=== PATIENT | female | born 1975 | race Caucasian/White ===

== ENCOUNTER 2020-05-14 17:31 | Inpatient (IN) ==
[2020-05-14] MEDS ORDERED: ONDANSETRON INJ 2 MG/ML 2 ML VIAL IV STA (17:47)
--- NOTE | 2020-05-14 17:58 | Emergency Department Note ---
Impression & Plan Acute upper gastrointestinal bleeding, Anemia, Hernia, hiatal, Nausea & vomiting ED Provider Note NAME: JOSE MANUEL TRAN AGE: 45 SEX: F : 1975 ARRIVES VIA: Walk-In INFORMANT: Patient, ED PROVIDER(S): Vijay Stark DO CHIEF COMPLAINT: Abdominal pain HPI: The patient is a 45-year-old female who presented to the emergency department with epigastric abdominal pain. The patient states she began having abdominal pain approximately 3:00 this morning. She states that the symptoms have been ongoing and since that time but they wax and wane. She started noticing epigastric abdominal pain as well as nausea vomiting. She has had multiple episodes of dark bowel movements as well as dark vomiting but she did take Pepto-Bismol. She states the pain is moderate to severe at this time. She had similar symptoms in the past. She has had upper endoscopy multiple times with no definite cause to her symptoms. She does have anemia and the feeling is that she does have some GI bleeding but no definite sources have been found despite having multiple work-ups. She denies having any fever or cough. She does state that she noticed some swelling in her hands and feet. She is not had any recent falls. She is not seen a provider for the symptoms today. ROS: See above HPI for pertinent positives & negatives. A total of 10 systems reviewed and were otherwise negative. PAST MEDICAL HISTORY: See Below PAST SURGICAL HISTORY: See Below FAMILY HISTORY: See Below SOCIAL HISTORY: See Below HOME MEDICATIONS: See Below ALLERGIES: See Below VITALS: See Below PHYSICAL EXAMINATION: GENERAL: The patient is awake and alert. She is very anxious appearing and appears to be uncomfortable. EYES: The conjunctivae are clear. The pupils are round and reactive. EARS, NOSE, MOUTH AND THROAT: The nose is without any evidence of any deformity. NECK: The neck is nontender and supple. RESPIRATORY: Normal respiratory effort is noted there is no evidence of wheezing rhonchi or rales CARDIOVASCULAR: Tachycardic rate with regular rhythm was noted. There is no definite murmur. GASTROINTESTINAL: Abdomen was soft mildly distended. There is epigastric tenderness to palpation but no guarding rigidity. Rectal exam revealed black stool which was heme positive. MUSCULOSKELETAL/EXTREMITIES: There is no evidence of gross deformity full range of motion is noted in the hips and shoulders. SKIN: There is no obvious evidence of any rash. No significant pedal edema was noted. NEUROLOGIC: Patient is awake alert and oriented x3 strength is symmetric patellar reflexes are 2+ bilaterally MEDICAL DECISION MAKING: The patient is a 45-year-old female who presented to the emergency department for an evaluation of nausea vomiting. The patient states she began having nausea vomiting early this morning. She does have a history of similar episodes in the past. She is had multiple upper endoscopies as well as lower endoscopies to evaluate anemia. She has known GI bleeding but never a source could be identified. The patient states she started having dark emesis as well as dark bowel movements but also took Pepto-Bismol prior to the onset of the dark emesis. The patient was found to have anemia. Her recent hemoglobin in the [employer] system was 13. This would signify a very significant drop in the patient's hemoglobin. The patient was treated with IV fluids. She was also given Protonix and Pepcid IV. She was also given IV Rocephin. She was given an tiemetics and on subsequent reevaluation was feeling much better. I discussed the patient's laboratory and radiographic studies with her. Because of her findings I will also discussed this case with the on-call [facility]. She will likely require further inpatient management. Triage Nursing notes reviewed. Prior medical records reviewed Vital Signs: reviewed and remarkable for tachycardia Differential diagnosis: Gastroenteritis, food borne illness, infections, appendicitis, diverticulitis, inflammatory bowel disease, obstruction, GI bleed, biliary pathology, volvulus, as well as other pathologies. ER treatment provided: See below Diagnostics interpreted by me: ECG: none Cardiac Monitoring: An order was placed for continuous cardiac monitoring. The monitor shows a rate of 115 bpm with sinus tachycardia rhythm. Laboratory studies: As stated above and show below. Imaging studies: See below Consultation(s): 1930: I discussed this case with Dr. Karimi who is on-call for the [facility] group. He will evaluate the patient in the emergency department for further management and disposition. 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 Current Living Situation: Family Other Information That Helps Us Care for You: No Feels Safe at Home: Yes Safety Concerns: Feels Safe At This Time Assistive Devices: Glasses Allergies Allergies Allergy/AdvReac Type Severity Reaction Status Date / Time Bactrim Allergy Intermediate sob, chest Verified 05/30/16 22:22 tightness nitrofurantoin Allergy Intermediate vomiting, Verified 05/14/20 20:28 headache Sulfa (Sulfonamide Allergy Intermediate RASH Unverified 05/14/20 20:28 Antibiotics) sulfamethoxazole Allergy Intermediate sob, chest Verified 05/14/20 20:27 tightness trimethoprim Allergy Intermediate sob, chest Verified 05/14/20 20:27 tightness Iodinated Contrast Media Allergy Unknown unk Verified 05/14/20 20:28 iodine Allergy Unknown CHEST Unverified 05/14/20 20:29 TIGHTNESS Home Meds Home Medications Medication Instructions Recorded Confirmed albuterol sulfate 2 puff INHALATION Q4H PRN 05/14/20 05/14/20 ascorbic acid (vitamin C) 0 mg PO DAILY 05/14/20 05/14/20 fluticasone propion-salmeterol 1 inh INHALATION BID 05/14/20 05/14/20 omeprazole 20 mg PO BID PRN 05/14/20 05/14/20 Results & Data (ED) Vital Signs Vital Signs - 24 hr 05/14/20 17:38 05/14/20 18:18 05/14/20 18:23 Temperature 36.9 C Temperature Source Oral Pulse Rate 132 H 115 H 114 H Pulse Rate [Right Finger] Pulse Rate from SpO2 Sensor 117 H 114 H Pulse Rhythm Respiratory Rate 19 17 24 Respiratory Effort / Characteristics Non-Labored Spontaneous Respiratory Depth Normal Blood Pressure 141/90 H 133/77 128/80 Blood Pressure [Right Arm] Blood Pressure Mean 107 84 103 Blood Pressure Mean [Right Arm] Blood Pressure Position Sitting Blood Pressure Position [Right Arm] Pulse Oximetry 98 97 97 Oxygen Delivery Method Room Air Sepsis Recent Fever Within 48 Hours No Sepsis New/Unexplained Change in Mental Status N/A Sepsis Action Taken by Nursing No Action Required 05/14/20 18:24 05/14/20 18:34 05/14/20 18:40 Temperature Temperature Source Pulse Rate 117 H 105 H Pulse Rate [Right Finger] Pulse Rate from SpO2 Sensor 116 H 116 H 105 H Pulse Rhythm Respiratory Rate 20 20 Respiratory Effort / Characteristics Respiratory Depth Blood Pressure 115/68 Blood Pressure [Right Arm] Blood Pressure Mean 92 Blood Pressure Mean [Right Arm] Blood Pressure Position Blood Pressure Position [Right Arm] Pulse Oximetry 98 98 98 Oxygen Delivery Method Sepsis Recent Fever Within 48 Hours Sepsis New/Unexplained Change in Mental Status Sepsis Action Taken by Nursing 05/14/20 18:48 05/14/20 18:50 05/14/20 18:52 Temperature Temperature Source Pulse Rate 115 H 104 H 128 H Pulse Rate [Right Finger] Pulse Rate from SpO2 Sensor 114 H 104 H Pulse Rhythm Regular Respiratory Rate 31 H 22 22 Respiratory Effort / Characteristics Respiratory Depth Blood Pressure 113/94 Blood Pressure [Right Arm] Blood Pressure Mean 96 Blood Pressure Mean [Right Arm] Blood Pressure Position Blood Pressure Position [Right Arm] Pulse Oximetry 100 98 98 Oxygen Delivery Method Sepsis Recent Fever Within 48 Hours Sepsis New/Unexplained Change in Mental Status Sepsis Action Taken by Nursing 05/14/20 19:00 05/14/20 19:10 05/14/20 19:20 Temperature Temperature Source Pulse Rate 107 H 101 H 107 H Pulse Rate [Right Finger] Pulse Rate from SpO2 Sensor 106 H 104 H 107 H Pulse Rhythm Respiratory Rate 21 18 21 Respiratory Effort / Characteristics Respiratory Depth Blood Pressure 112/69 Blood Pressure [Right Arm] Blood Pressure Mean 72 Blood Pressure Mean [Right Arm] Blood Pressure Position Blood Pressure Position [Right Arm] Pulse Oximetry 97 98 98 Oxygen Delivery Method Sepsis Recent Fever Within 48 Hours Sepsis New/Unexplained Change in Mental Status Sepsis Action Taken by Nursing 05/14/20 19:30 05/14/20 19:40 05/14/20 19:50 Temperature Temperature Source Pulse Rate 109 H 102 H 98 H Pulse Rate [Right Finger] Pulse Rate from SpO2 Sensor 111 H 102 H 99 H Pulse Rhythm Respiratory Rate 24 19 15 Respiratory Effort / Characteristics Respiratory Depth Blood Pressure Blood Pressure [Right Arm] Blood Pressure Mean Blood Pressure Mean [Right Arm] Blood Pressure Position Blood Pressure Position [Right Arm] Pulse Oximetry 98 99 99 Oxygen Delivery Method Sepsis Recent Fever Within 48 Hours Sepsis New/Unexplained Change in Mental Status Sepsis Action Taken by Nursing 05/14/20 20:00 05/14/20 20:10 05/14/20 20:20 Temperature Temperature Source Pulse Rate 98 H 99 H 96 H Pulse Rate [Right Finger] Pulse Rate from SpO2 Sensor 97 H 100 H 97 H Pulse Rhythm Respiratory Rate 19 24 23 Respiratory Effort / Characteristics Respiratory Depth Blood Pressure 135/83 Blood Pressure [Right Arm] Blood Pressure Mean 104 Blood Pressure Mean [Right Arm] Blood Pressure Position Blood Pressure Position [Right Arm] Pulse Oximetry 99 99 99 Oxygen Delivery Method Sepsis Recent Fever Within 48 Hours Sepsis New/Unexplained Change in Mental Status Sepsis Action Taken by Nursing 05/14/20 20:47 Temperature Temperature Source Pulse Rate Pulse Rate [Right Finger] 101 H Pulse Rate from SpO2 Sensor Pulse Rhythm Respiratory Rate 20 Respiratory Effort / Characteristics Respiratory Depth Blood Pressure Blood Pressure [Right Arm] 127/79 Blood Pressure Mean Blood Pressure Mean [Right Arm] 95 Blood Pressure Position Blood Pressure Position [Right Arm] Sitting Pulse Oximetry 99 Oxygen Delivery Method Room Air Sepsis Recent Fever Within 48 Hours Sepsis New/Unexplained Change in Mental Status Sepsis Action Taken by [facility] Medications Current Medication List: was personally reviewed by me Laboratory Data Attestation: I reviewed the patient's lab results. Result diagrams: 05/14/20 18:05 05/14/20 18:05 Lab Results 05/14/20 05/14/20 05/14/20 Range/Units 18:05 18:05 18:05 WBC 16.13 H (4.8-10.8) K/uL RBC 3.67 L (4.2-5.4) M/uL Hgb 10.8 L (12.0-16.0) g/dL Hct 33.1 L (37-47) % MCV 90.2 (80-100) fL MCH 29.4 (25-34) pg MCHC 32.6 (32-36) g/dL RDW Std Deviation 49.0 H (36.4-46.3) fL RDW Coeff of Hasmukh 15.0 H (11.5-14.5) % Plt Count 410 H (130-400) K/uL MPV 10.5 H (7.4-10.4) fL Immature Gran % (Auto) 0.2 % Neut % (Auto) 84.4 % Lymph % (Auto) 9.9 % S[place] % (Auto) 4.8 % Eos % (Auto) 0.6 % Baso % (Auto) 0.1 % Neut # (Auto) 13.61 H (1.4-6.5) K/uL Lymph # (Auto) 1.59 (1.2-3.4) K/uL [place]y # (Auto) 0.78 H (0.11-0.59) K/uL Eos # (Auto) 0.09 (0-0.5) K/uL Baso # (Auto) 0.02 (0-0.2) K/uL Immature Gran # (Auto) 0.04 H (0.00-0.02) K/uL PT 11.5 (9.0-12.0) Seconds INR 1.1 (0.9-1.1) APTT 24.0 (21.0-31.0) Seconds PTT Ratio 0.9 Sodium 136 (136-145) mmol/L Potassium 4.4 (3.5-5.1) mmol/L Chloride 106 (98-107) mmol/L Carbon Dioxide 24 (21-32) mmol/L Anion Gap 6.0 (3-11) BUN 41 H (7-18) mg/dl Creatinine 0.69 (0.6-1.2) mg/dl Est Cr Clr Drug Dosing Not Reportable Est GFR ( Amer) 121.0 Est GFR (Non-Af Amer) 104.4 BUN/Creatinine Ratio 60.0 H (10-20) Glucose 111 H (70-99) mg/dl Calcium 9.1 (8.5-10.1) mg/dl Total Bilirubin 0.4 (0.2-1) mg/dl AST 9 L (15-37) U/L ALT 11 L (12-78) U/L Alkaline Phosphatase 65 (45-117) U/L Total Protein 6.8 (6.4-8.2) gm/dl Albumin 3.3 L (3.4-5.0) gm/dl Globulin 3.5 (2.5-4.0) gm/dl Albumin/Globulin Ratio 1.0 (0.9-2) Lipase 80 (73-393) U/L HCG, Qual (Negative) Urine Color Urine Appearance (Clear) Urine pH (4.5-7.5) Ur Specific [place] (1.000-1.030) Urine Protein (Negative) Urine Glucose (UA) (Negative) Urine Ketones (Negative) Urine Blood (Negative) Urine Nitrite (Negative) Urine Bilirubin (Negative) Urine Urobilinogen (Negative) Ur Leukocyte Esterase (Negative) Urine WBC (Auto) (0-5) /hpf Urine RBC (Auto) (0-4) /hpf U Hyaline Cast (Auto) (0-5) /lpf U Epithel Cells (Auto) (0-5) /lpf Urine Bacteria (Auto) (Negative) Blood Type Antibody Screen 05/14/20 05/14/20 05/14/20 Range/Units 18:05 18:10 19:32 WBC (4.8-10.8) K/uL RBC (4.2-5.4) M/uL Hgb (12.0-16.0) g/dL Hct (37-47) % MCV (80-100) fL MCH (25-34) pg MCHC (32-36) g/dL RDW Std Deviation (36.4-46.3) fL RDW Coeff of Hasmukh (11.5-14.5) % Plt Count (130-400) K/uL MPV (7.4-10.4) fL Immature Gran % (Auto) % Neut % (Auto) % Lymph % (Auto) % Sibley % (Auto) % Eos % (Auto) % Baso % (Auto) % Neut # (Auto) (1.4-6.5) K/uL Lymph # (Auto) (1.2-3.4) K/uL S[place]y # (Auto) (0.11-0.59) K/uL Eos # (Auto) (0-0.5) K/uL Baso # (Auto) (0-0.2) K/uL Immature Gran # (Auto) (0.00-0.02) K/uL PT (9.0-12.0) Seconds INR (0.9-1.1) APTT (21.0-31.0) Seconds PTT Ratio Sodium (136-145) mmol/L Potassium (3.5-5.1) mmol/L Chloride (98-107) mmol/L Carbon Dioxide (21-32) mmol/L Anion Gap (3-11) BUN (7-18) mg/dl Creatinine (0.6-1.2) mg/dl Est Cr Clr Drug Dosing Est GFR ( Amer) Est GFR (Non-Af Amer) BUN/Creatinine Ratio (10-20) Glucose (70-99) mg/dl Calcium (8.5-10.1) mg/dl Total Bilirubin (0.2-1) mg/dl AST (15-37) U/L ALT (12-78) U/L Alkaline Phosphatase (45-117) U/L Total Protein (6.4-8.2) gm/dl Albumin (3.4-5.0) gm/dl Globulin (2.5-4.0) gm/dl Albumin/Globulin Ratio (0.9-2) Lipase (73-393) U/L HCG, Qual Negative (Negative) Urine Color Yellow Urine Appearance Clear (Clear) Urine pH 5.5 (4.5-7.5) Ur Specific [place] 1.023 (1.000-1.030) Urine Protein Negative (Negative) Urine Glucose (UA) Negative (Negative) Urine Ketones 2+ H (Negative) Urine Blood Trace H (Negative) Urine Nitrite Negative (Negative) Urine Bilirubin Negative (Negative) Urine Urobilinogen Negative (Negative) Ur Leukocyte Esterase Negative (Negative) Urine WBC (Auto) 1-5 (0-5) /hpf Urine RBC (Auto) 0-4 (0-4) /hpf U Hyaline Cast (Auto) 1-5 (0-5) /lpf U Epithel Cells (Auto) >30 H (0-5) /lpf Urine Bacteria (Auto) Negative (Negative) Blood Type A Positive Antibody Screen NEGATIVE Administered Medications Discontinued Medications Sodium Chloride (Nss 1000ml) 1,000 mls @ 999 mls/hr IV .Q1H1M MARTIN Stop: 05/14/20 19:00 Last Infusion: 05/14/20 19:29 Dose: 0 mls/hr Documented by: [id number] Admin: 05/14/20 18:21 Dose: 999 mls/hr Documented by: [id number] Pantoprazole Sodium 40 mg/ (Syringe) 10 mls @ 5 mls/min IV NOW ONE Stop: 05/14/20 19:20 Last Admin: 05/14/20 19:44 Dose: 5 mls/min Documented by: [id number] Famotidine (Pepcid 20mg Iv Push) 20 mg in 5 mls @ 2.5 mls/min IV NOW STA Stop: 05/14/20 19:20 Last Admin: 05/14/20 19:28 Dose: 2.5 mls/min Documented by: [id number] Ceftriaxone Sodium (Rocephin) 1,000 mg in 50 mls @ 100 mls/hr IV NOW STA Stop: 05/14/20 19:48 Last Infusion: 05/14/20 20:00 Dose: 0 mls/hr Documented by: [id number] Admin: 05/14/20 19:29 Dose: 100 mls/hr Documented by: [id number] Sodium Chloride (Nss 1000ml) 1,000 mls @ 999 mls/hr IV .Q1H1M ONE Stop: 05/14/20 20:19 Last Infusion: 05/14/20 20:34 Dose: 0 mls/hr Documented by: [id number] Admin: 05/14/20 19:28 Dose: 999 mls/hr Documented by: [id number] Ondansetron HCl (Ondansetron Inj 2 Mg/Ml 2 Ml Vial) 4 mg IV NOW STA Stop: 05/14/20 17:48 Last Admin: 05/14/20 18:20 Dose: 4 mg Documented by: [id number] Imaging Data Radiologist's Impression: Patient: JOSE MANUEL TRAN Admit Date: 05/14/20 MR#: [id number] Address1: [address] [place] [address] Acct ID:[id number] Address2: Date: 1975 [facility] Zip: [place] [address] Age: 45 Location: ED Sex: F Room/Bed: Att Phy: Diagnosis: VOMITING BLACK,ABDOMINAL PAIN,WEAKNESS Tracee Phy: PCP,NO Service Date: 05/14/20 Fam Phy: Interpreting Phy: Lance Govea Admit Phy: Ordering Phy: Vijay Stark DO cc: ~ ABDOMEN AND PELVIS CT WITHOUT CONTRAST CT DOSE: 472.66 mGy.cm HISTORY: Acute generalized abdominal pain with vomiting vomiting TECHNIQUE: Multiaxial CT images of the abdomen and pelvis were performed without contrast. A dose lowering technique was utilized adhering to the principles of ALARA. COMPARISON STUDY: CT abdomen and pelvis 11/15/2013 FINDINGS: Clear lung bases. No pneumatosis or pneumoperitoneum. Imaged inferior cardiac chambers are unremarkable. The spleen, pancreas and right adrenal gland are unremarkable. 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 Mildly contracted gallbladder. Unenhanced liver is unremarkable. Unremarkable kidneys. Decompressed urinary bladder. Follicular changes of the ovaries. Unremarkable uterus. Aorta and IVC are unremarkable. Large hiatal hernia. Colonic diverticulosis without acute diverticulitis. Wall thickening with partial distention involves the ascending and transverse colon. 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 No small bowel obstruction. Normal appendix. Bones appear intact. No acute fracture. IMPRESSION: 1. No bowel obstruction. 2. Noninflamed appendix. 3. Large hiatal hernia. ACT 112: Negative or not required by law. The above report was generated using voice recognition software. It may contain grammatical, syntax or spelling errors. Electronically signed by: Rahul Govea M.D. 05/14/2020 6:41 PM Dictated: 05/14/201833 Transcribed: 05/14/201833 Blood Pressure Blood Pressure Findings: Normal blood pressure Discharge Plan Visit Data Chief Complaint: Abdominal Pain Stated Complaint: VOMITING BLACK,ABDOMINAL PAIN,WEAKNESS ED Provider: Vijay Stark Discharge Problem: Acute upper gastrointestinal bleeding, Anemia, Hernia, hiatal, Nausea & vomiting Patient Disposition: Being Evaluated by Hospitalist Condition: Good Forms Stand Alone Forms: Fisgo Prescriptions Prescriptions: No Action omeprazole 20 mg Capsule,Delayed Release(Dr/Ec) 20 mg PO BID PRN (Reason: Gi Upset) RF: 0 ascorbic acid (vitamin C) 100 mg Tablet 0 mg PO DAILY RF: 0 fluticasone propion-salmeterol 250-50 mcg/dose blister with device 1 inh INHALATION BID RF: 0 albuterol sulfate 90 mcg/actuation HFA aerosol inhaler 2 puff INHALATION Q4H PRN (Reason: Shortness Of Breath Or Wheezing) RF: 0 Referrals Referrals: Jim Bailey MD [Primary Care Provider] - Discharge Problem: Anemia Qualifiers: Anemia type: unspecified type Qualified Code(s): D64.9 - Anemia, unspecified Nausea & vomiting Qualifiers: Vomiting type: unspecified Vomiting Intractability: non-intractable Qualified Code(s): R11.2 - Nausea with vomiting, unspecified
[2020-05-14] MEDS ORDERED: SODIUM CHLORIDE 0.9% 1000ML 1,000 ML IV SCH (18:00)
[2020-05-14 18:19] LABS: Basophils # (auto) 0.02 K/uL (0-0.2); Basophils % (auto) 0.1 %; Eosinophils # (auto) 0.09 K/uL (0-0.5); Eosinophils % (auto) 0.6 %; Hematocrit (blood only) 33.1 % (37-47); Hemoglobin 10.8 g/dL (12.0-16.0); Immature Granulocytes # (auto) 0.04 K/uL (0.00-0.02); Immature Granulocytes % (auto) 0.2 %; Lymphocytes # (auto) 1.59 K/uL (1.2-3.4); Lymphocytes % (auto) 9.9 %; Mean Corpuscular Hemoglobin 29.4 pg (25-34); Mean Corpuscular Hgb Conc 32.6 g/dL (32-36); Mean Corpuscular Volume 90.2 fL (80-100); Mean Platelet Volume 10.5 fL (7.4-10.4); Monocytes # (auto) 0.78 K/uL (0.11-0.59); Monocytes % (auto) 4.8 %; Neutrophils # (auto) 13.61 K/uL (1.4-6.5); Neutrophils % (auto) 84.4 %; Platelet Count 410 K/uL (130-400); Red Blood Count 3.67 M/uL (4.2-5.4); White Blood Count 16.13 K/uL (4.8-10.8)
[2020-05-14 18:29] LABS: INR 1.1 (0.9-1.1); Partial Thromboplastin Ratio 0.9; Prothrombin Time 11.5 Seconds (9.0-12.0)
[2020-05-14 18:32] LABS: Pregnancy Test, Serum Negative (Negative)
[2020-05-14 18:35] LABS: Alanine Aminotransferase 11 U/L (12-78); Albumin Level 3.3 gm/dl (3.4-5.0); Aspartate Aminotransferase 9 U/L (15-37); Blood Urea Nitrogen 41 mg/dl (7-18); Calcium 9.1 mg/dl (8.5-10.1); Carbon Dioxide 24 mmol/L (21-32); Chloride 106 mmol/L (98-107); Est GFR (Non-African American) 104.4; Glucose 111 mg/dl (70-99); Lipase 80 U/L (73-393); Potassium 4.4 mmol/L (3.5-5.1); Sodium 136 mmol/L (136-145)
[2020-05-14 18:38] LABS: Alkaline Phosphatase 65 U/L (45-117); Bilirubin,Total 0.4 mg/dl (0.2-1); Globulin 3.5 gm/dl (2.5-4.0); Total Protein 6.8 gm/dl (6.4-8.2)
--- NOTE | 2020-05-14 18:42 | CT Scan Report ---
ABDOMEN AND PELVIS CT WITHOUT CONTRAST CT DOSE: 472.66 mGy.cm HISTORY: Acute generalized abdominal pain with vomiting vomiting TECHNIQUE: Multiaxial CT images of the abdomen and pelvis were performed without contrast. A dose lo wering technique was utilized adhering to the principles of ALARA. COMPARISON STUDY: CT abdomen and pelvis 11/15/2013 FINDINGS: Clear lung bases. No pneumatosis or pneumoperitoneum. Imaged inferior cardiac chambers are unremarkab le. The spleen, pancreas and right adrenal gland are unremarkable. 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 Mi ldly contracted gallbladder. Unenhanced liver is unremarkable. Unremarkable kidneys. Decompressed uri nary bladder. Follicular changes of the ovaries. Unremarkable uterus. Aorta and IVC are unremarkable. Large hiatal hernia. Colonic diverticulosis without acute diverticulitis. Wall thickening with partia l distention involves the ascending and transverse colon. 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 No small davon wel obstruction. Normal appendix. Bones appear intact. No acute fracture. IMPRESSION: 1. No bowel obstruction. 2. Noninflamed appendix. 3. Large hiatal hernia. ACT 112: Negative or not required by law. The above report was generated using voice recognition software. It may contain grammatical, syntax o r spelling errors. Electronically signed by: Rahul Govea M.D. 05/14/2020 6:41 PM
[2020-05-14 18:54] LABS: Appearance Urine Clear (Clear); Bacteria Urine Automated Negative (Negative); Bilirubin Urine Negative (Negative); Blood Urine Trace (Negative); Color Urine Yellow; Epithelial Cell Urine Auto >30 /lpf (0-5); Glucose Urine UA Negative (Negative); Ketones Urine 2+ (Negative); Leukocyte Esterase Urine Negative (Negative); Nitrite Urine Negative (Negative); Protein Urine Negative (Negative); RBC Urine Automated 0-4 /hpf (0-4); Specific Gravity Urine 1.023 (1.000-1.030); Urobilinogen Urine Negative (Negative); pH Urine 5.5 (4.5-7.5)
[2020-05-14] MEDS ORDERED: SODIUM CHLORIDE 0.9% 1000ML 1,000 ML IV ONE (19:19)
[2020-05-14] MEDS ORDERED: FAMOTIDINE 20MG IV PUSH 20 MG/5 ML SYR IV STA (19:19)
[2020-05-14] MEDS ORDERED: cefTRIAXone SODIUM 1,000 MG/50 ML BAG IV STA (19:19)
[2020-05-14] MEDS ORDERED: PANTOprazole 40 MG in SYRINGE 0 ML IV ONE (19:19)
[2020-05-14] MEDS ORDERED: ONDANSETRON INJ 2 MG/ML 2 ML VIAL IV PRN (20:14)
--- NOTE | 2020-05-14 21:01 | History & Physical Report ---
Date of Service May 14, 2020 Assessment & Plan (1) Acute upper gastrointestinal bleeding: Presented with abdominal discomfort with nausea and vomiting and black tarry stool Has coffee-ground emesis in the emergency room We will get a Hemoccult of gastric content and stool Use of Aleve 550 mg last evening Intravenous Protonix has been started Consult GI for possible endoscopy tomorrow H&H every 6 hours Type and hold for 2 units N.p.o. for now (2) Acute gastritis: Has had gluten-free pizza last evening also took 2 of Aleve Bowel sound is exaggerated CT of the abdomen did not show large hiatal hernia (3) Anemia: Iron deficiency anemia History of iron infusion in the past (4) Hernia, hiatal: As above (5) Asthma: Controlled Continue current medications (6) GERD (gastroesophageal reflux disease): Has been on PPI DVT prophylaxis SCDs Status Full History of Present Illness Chief Complaint: Abdominal pain with nausea vomiting and melena Primary Care Provider: Jim Bailey MD She is a 45 years old female with significant past medical history of iron deficiency anemia, GERD with esophagitis, hiatal hernia and history of homozygous for [id number] polymorphism of MTHFR apparently has been complaining of abdominal pain since around 3 AM this morning. She has had gluten-free pizza last evening and also took Aleve 550 mg last evening. She woke up with epigastric discomfort and vomited once and following that she was not feeling well throughout the whole day today. She has had another vomiting in the after noon and that did show brown vomitus and also had a bowel movement with black tarry stool. Apparently she took Pepto-Bismol for stomach upset as well which can make the stool black. She did not have any fever and/or chills with it. She did not have any problem with urine and denies any other symptoms. She has been complaining of increasing bowel sound but none office her family members have been affected with this problem. Her hemoglobin was 10.8 which showed a drop from his outpatient hemoglobin from 13. Started with intravenous Protonix and admitted admitted to telemetry unit for continuation of care. Allergies Allergy/AdvReac Type Severity Reaction Status Date / Time Bactrim Allergy Intermediate sob, chest Verified 05/30/16 22:22 tightness nitrofurantoin Allergy Intermediate vomiting, Verified 05/14/20 20:28 headache Sulfa (Sulfonamide Allergy Intermediate RASH Unverified 05/14/20 20:28 Antibiotics) sulfamethoxazole Allergy Intermediate sob, chest Verified 05/14/20 20:27 tightness trimethoprim Allergy Intermediate sob, chest Verified 05/14/20 20:27 tightness Iodinated Contrast Media Allergy Unknown unk Verified 05/14/20 20:28 iodine Allergy Unknown CHEST Unverified 05/14/20 20:29 TIGHTNESS Home Medications Home Medications Medication Instructions Recorded Confirmed Type albuterol sulfate 2 puff INHALATION Q4H PRN 05/14/20 05/14/20 History ascorbic acid (vitamin C) 0 mg PO DAILY 05/14/20 05/14/20 History fluticasone propion-salmeterol 1 inh INHALATION BID 05/14/20 05/14/20 History omeprazole 20 mg PO BID PRN 05/14/20 05/14/20 History Past Med/Surg History Medical History Anemia Asthma Cecal diverticulitis Diverticulitis GERD (gastroesophageal reflux disease) Kidney stone Social History Smoking Status: Unknown if ever smoked Hx Alcohol Use: No Hx Substance Use: No Preferred Language: Kazakh Communication Ability: Effective Gas Prover Required: No Current Living Situation: Family Other Information That Helps Us Care for You: No Feels Safe at Home: Yes Safety Concerns: Feels Safe At This Time Assistive Devices: Glasses Review of Systems Review of Systems: All systems reviewed & are unremarkable except as noted in HPI & below Physical Exam Physical Exam: Lying in bed comfortably Constitutional: well developed, well nourished and + ill appearing; no acute distress Eyes: PERRL, conjunctivae normal, anicteric sclerae ENMT: external ear and nose normal, oropharynx normal Neck: trachea midline, no thyromegaly Respiratory: no respiratory distress Auscultation: lungs clear to auscultation bilaterally Cardiovascular: Rate/Rhythm: regular rate and regular rhythm Heart Sounds: no murmur Gastrointestinal (Abdomen): Inspection/Auscultation: abdomen not distended and + abnormal bowel sounds (Bowel sounds exaggerated) Percussion/Palpation: + abdomen tender (Mildly tender epigastrium) and abdomen soft Musculoskeletal: No acute arthritis in any joint Psychiatric: A+Ox3, euthymic affect Lymphatic: no cervical or axillary lymphadenopathy Results & Data Results & Data ([facility]) Vital Signs (Past 12 Hours) Vital Signs Temp Pulse Resp BP Pulse Ox 05/14/20 20:20 96 H 23 99 05/14/20 20:10 99 H 24 99 05/14/20 20:00 98 H 19 135/83 99 05/14/20 19:50 98 H 15 99 05/14/20 19:40 102 H 19 99 05/14/20 19:30 109 H 24 98 05/14/20 19:20 107 H 21 98 05/14/20 19:10 101 H 18 98 05/14/20 19:00 107 H 21 112/69 97 05/14/20 18:52 128 H 22 98 05/14/20 18:50 104 H 22 98 05/14/20 18:48 115 H 31 H 113/94 100 05/14/20 18:40 105 H 20 98 05/14/20 18:34 117 H 20 98 05/14/20 18:24 115/68 98 05/14/20 18:23 114 H 24 128/80 97 05/14/20 18:18 115 H 17 133/77 97 05/14/20 17:38 36.9 C 132 H 19 141/90 H 98 Code Status & VTE Plan VTE Prophylaxis Plan VTE Prophylaxis will be ordered: Yes (1) Anemia Anemia type: unspecified type Qualified Code(s): D64.9 - Anemia, unspecified
[2020-05-14] MEDS ORDERED: ALBUTEROL HFA 8 GM INHALER INH PRN (21:58)
[2020-05-14] MEDS ORDERED: FLUTICASONE PROPIONATE NA SPR 16 GM BTL NAE PRN (21:59)
[2020-05-14] MEDS: SODIUM CHLORIDE 0.9% 1000ML 1,000 ML IV SCH (22:26)
[2020-05-14] MEDS: PANTOprazole 40 MG in DEXTROSE 5% 100 ML IV SCH (22:32)
[2020-05-15] MEDS: PANTOprazole 40 MG in DEXTROSE 5% 100 ML IV SCH ×5 (02:59→23:33)
[2020-05-15 04:55] LABS: Hematocrit (blood only) 23.5 % (37-47); Hemoglobin 7.4 g/dL (12.0-16.0); Mean Corpuscular Hemoglobin 28.5 pg (25-34); Mean Corpuscular Hgb Conc 31.5 g/dL (32-36); Mean Corpuscular Volume 90.4 fL (80-100); Mean Platelet Volume 10.4 fL (7.4-10.4); Platelet Count 270 K/uL (130-400); RDW Coefficient of Variation 15.2 % (11.5-14.5); RDW Standard Deviation 49.9 fL (36.4-46.3); White Blood Count 9.95 K/uL (4.8-10.8)
[2020-05-15 05:06] LABS: BUN Creatinine Ratio 44.2 (10-20); Calcium 7.7 mg/dl (8.5-10.1); Creatinine Clr Calc Pharmacy 137.9 ml/min; Est GFR (African American) 138.3; Est GFR (Non-African American) 119.3; Potassium 3.5 mmol/L (3.5-5.1)
[2020-05-15 05:14] LABS: Basophils # (auto) 0.01 K/uL (0-0.2); Basophils % (auto) 0.1 %; Eosinophils # (auto) 0.08 K/uL (0-0.5); Eosinophils % (auto) 0.8 %; Immature Granulocytes # (auto) 0.02 K/uL (0.00-0.02); Immature Granulocytes % (auto) 0.2 %; Lymphocytes % (auto) 21.1 %; Monocytes # (auto) 0.67 K/uL (0.11-0.59); Monocytes % (auto) 6.7 %; Neutrophils # (auto) 7.07 K/uL (1.4-6.5); Neutrophils % (auto) 71.1 %; RBC Morphology Unremarkable
[2020-05-15] MEDS: SODIUM CHLORIDE 0.9% 1000ML 1,000 ML IV SCH (05:27)
[2020-05-15 06:52] LABS: Hematocrit (blood only) 23.3 % (37-47); Hemoglobin 7.4 g/dL (12.0-16.0)
[2020-05-15] MEDS: FLUTICASONE/VILANTEROL 100/25MCG 14 PUFFS/INHALER INH SCH (08:55)
[2020-05-15 10:34] LABS: Hematocrit (blood only) 27.4 % (37-47); Hemoglobin 8.5 g/dL (12.0-16.0)
--- NOTE | 2020-05-15 12:39 | Gastrointestinal Consultation ---
Date of Consultation May 15, 2020 Assessment & Plan (1) Acute upper gastrointestinal bleeding: Though her BMs may be black from the Pepto Bismol, her elevated BUN, and black emesis suggests a slow upper GI bleed such as from a Toño lesion and her large hiatal hernia. 1. Agree with Protonix drip, please continue 2. Clear liquids p.o. today. N.p.o. after midnight. 3. EGD tomorrow morning. 4. Further recommendations to follow EGD Present on Admission?: Yes (2) Hernia, hiatal: Supervising Physician Co-Signing Physician Notes I have personally seen and examined the patient with RADHA Lira on 05/15/2020. Her note reflects my exam and findings. I agree with her impression and plan. Follow H/H. Will arrange EGD in am. Skyler Dixon M.D. History of Present Illness Reason for Consultation: Acute upper GI bleeding Requesting Physician: Dr. Karimi Attending Physician: Kelly White MD History of Present Illness Ms. Vuong is a 45-year-old female with a history of chronic anemia, large hiatal hernia, homozygous for MTHFR mutation. She had taken a few doses of Aleve over the past few weeks due to a back muscle strain. She woke in 3 AM yesterday morning with epigastric pain, initially vomiting the food she ate the evening before. She took some Pepto-Bismol, then later yesterday she passed a black bowel movement and vomited black emesis. She denies any chronic abdominal pain diarrhea or constipation. On arrival at [facility], hemoglobin was 10.8, and this morning 7.4. BUN was 41 yesterday, [address] did not show any significant abnormalities other than the large hiatal hernia. Her most recent EGD was in 2014 with a large hiatal hernia she also underwent EGD/ colonoscopy in 2013 with findings of a large hiatal hernia, and colonoscopy with diverticulosis. Allergies Allergy/AdvReac Type Severity Reaction Status Date / Time Bactrim Allergy Intermediate sob, chest Verified 05/30/16 22:22 tightness nitrofurantoin Allergy Intermediate vomiting, Verified 05/14/20 20:28 headache Sulfa (Sulfonamide Allergy Intermediate RASH Unverified 05/14/20 20:28 Antibiotics) sulfamethoxazole Allergy Intermediate sob, chest Verified 05/14/20 20:27 tightness trimethoprim Allergy Intermediate sob, chest Verified 05/14/20 20:27 tightness Iodinated Contrast Media Allergy Unknown unk Verified 05/14/20 20:28 iodine Allergy Unknown CHEST Unverified 05/14/20 20:29 TIGHTNESS Home Medications Home Medications Medication Instructions Recorded Confirmed Type albuterol sulfate 2 puff INHALATION Q4H PRN 05/14/20 05/14/20 History ascorbic acid (vitamin C) 0 mg PO DAILY 05/14/20 05/14/20 History fluticasone propion-salmeterol 1 inh INHALATION BID 05/14/20 05/14/20 History omeprazole 20 mg PO BID PRN 05/14/20 05/14/20 History Patient History Medical History Anemia Asthma Cecal diverticulitis Diverticulitis GERD (gastroesophageal reflux disease) Kidney stone Social History Smoking Status: Unknown if ever smoked Hx Alcohol Use: No Hx Substance Use: No Preferred Language: Maltese Communication Ability: Effective Millinery Blocker Required: No Current Living Situation: Family Other Information That Helps Us Care for You: No Feels Safe at Home: Yes Safety Concerns: Feels Safe At This Time Assistive Devices: Glasses Review of Systems Review of Systems: ROS: Gen: + weakness No fevers, weight loss Eyes: No eye redness, or pain, no recent vision changes Resp: No SOB, no cough Cardio: No palpitations/irregular beats, no chest pain GI:+ mild mid abd pain; + nausea/vomiting yesterday, none today : Denies pain on urination Skin: No jaundice, itching or new rashes Physical Exam Constitutional: well developed, + ill appearing and cooperative Eyes: PERRL, conjunctivae normal, anicteric sclerae ENMT: external ear and nose normal, oropharynx normal Neck: trachea midline, no thyromegaly Respiratory: normal respiratory effort, lungs clear to auscultation normal respiratory effort and able to speak in complete sentences; no respiratory distress, no labored breathing, does not use accessory muscles and no cough Cardiovascular: RRR, no murmur, no edema Gastrointestinal (Abdomen): normal bowel sounds, soft, nontender, no hepatosplenomegaly Skin: no rashes, warm and dry normal turgor and + pallor Neurologic: PERRL, EOMI, accommodation nl, no face palsy, no dysarthria awake; not confused Psychiatric: A+Ox3, euthymic affect Orientation: alert, oriented x 3 and cooperative Lymphatic: no cervical or axillary lymphadenopathy Results & Data ([facility]) Vital Signs (Past 12 Hours) Vital Signs Temp Pulse Resp BP Pulse Ox 05/15/20 11:33 36.8 C 95 H 20 126/79 99 05/15/20 07:26 37.0 C 97 H 19 107/67 94 05/15/20 04:58 37 C 98 H 18 109/72 93 Laboratory Results WBC 9.5, hemoglobin 7.4, hematocrit 23.5, platelets 270, sodium 143, K3.5, BUN 20, creatinine 0.46. Diagnostic Findings Noncontrast CT abdomen and pelvis: 1. No bowel obstruction. 2. Noninflamed appendix. 3. Large hiatal hernia.
[2020-05-15 18:06] LABS: Hematocrit (blood only) 22.5 % (37-47)
[2020-05-15] MEDS ORDERED: SODIUM CHLORIDE 0.9% 250 ML IV PRN (18:10)
--- NOTE | 2020-05-15 18:10 | Hospitalist Progress Note ---
Date of Service May 15, 2020 Assessment & Plan (1) Acute upper gastrointestinal bleeding: Presented with abdominal discomfort with nausea and vomiting and black tarry stool possible due to NSAID no episode of hematemesis since admission on IV PPI cont to follow H&H Closely GI eval appreciated , clear liquid diet ,NPO past midnight for EGD in am Acute blood loss anemia : due to GI bleed Hb drop noted from 10 -> 8-> 7 will transfuse 2 unit of PRBC follow H&H (2) Acute gastritis: Has had gluten-free pizza last evening also took 2 of Aleve Bowel sound is exaggerated CT of the abdomen did not show large hiatal hernia (3) Anemia: Iron deficiency anemia History of iron infusion in the past (4) Hernia, hiatal: As above (5) Asthma: Controlled Continue current medications (6) GERD (gastroesophageal reflux disease): Has been on PPI DVT prophylaxis SCDs Status Full Admission and Anticipated Discharge Date Admission Date: May 14, 2020 Subjective feels weak and fatigued no further episode hematemesis or melena Physical Exam Constitutional: WD/WN, vitals as above Eyes: PERRL, conjunctivae normal, anicteric sclerae ENMT: external ear and nose normal, oropharynx normal Neck: trachea midline, no thyromegaly Respiratory: normal respiratory effort, lungs clear to auscultation Cardiovascular: RRR, no murmur, no edema Gastrointestinal (Abdomen): normal bowel sounds, soft, nontender, no hepatosplenomegaly Musculoskeletal: no cyanosis or clubbing, extremities motor strength 5/5 Skin: no rashes, warm and dry Neurologic: PERRL, EOMI, accommodation nl, no face palsy, no dysarthria Psychiatric: A+Ox3, euthymic affect Results & Data Results & Data ([facility]) Vital Signs (Past 12 Hours) Vital Signs Temp Pulse Resp BP Pulse Ox 05/15/20 15:23 36.8 C 87 17 105/57 L 96 05/15/20 11:33 36.8 C 95 H 20 126/79 99 05/15/20 07:26 37.0 C 97 H 19 107/67 94 (1) Anemia Anemia type: unspecified type Qualified Code(s): D64.9 - Anemia, unspecified
--- NOTE | 2020-05-15 18:13 | Communication Note ---
Date of Service: May 15, 2020 6 pm H&H shows Hb drop 7 acute blood loss anemia due to GI bleed ordered for 2 units of PRBC to be transfused repeat H&H in 6 hrs scheduled to have EGD in am Kelly White MD
[2020-05-15] MEDS ORDERED: ACETAMINOPHEN 500 MG TAB PO SCH (18:30)
[2020-05-16 03:27] LABS: Hematocrit (blood only) 26.9 % (37-47); Hemoglobin 8.9 g/dL (12.0-16.0); Mean Corpuscular Hemoglobin 29.7 pg (25-34); Mean Corpuscular Hgb Conc 33.1 g/dL (32-36); Mean Corpuscular Volume 89.7 fL (80-100); Platelet Count 207 K/uL (130-400); RDW Coefficient of Variation 15.3 % (11.5-14.5); RDW Standard Deviation 49.3 fL (36.4-46.3); White Blood Count 6.37 K/uL (4.8-10.8)
[2020-05-16 03:53] LABS: BUN Creatinine Ratio 21.2 (10-20); Calcium 7.4 mg/dl (8.5-10.1); Creatinine Clr Calc Pharmacy 124.8 ml/min; Est GFR (African American) 133.7; Est GFR (Non-African American) 115.3; Potassium 3.7 mmol/L (3.5-5.1)
[2020-05-16] MEDS: PANTOprazole 40 MG in DEXTROSE 5% 100 ML IV SCH ×3 (04:06→16:38)
--- NOTE | 2020-05-16 10:59 | Gastroenterology Progress Note ---
Date of Service May 16, 2020 Assessment & Plan (1) Acute upper gastrointestinal bleeding: Differentials considered include: Upper GI bleed such as from a Toño lesion and her large hiatal hernia vs esophagitis, gastritis, ulcer disease. 1. EGD today for melena/anemia 2. Please keep NPO and continue PPI drip. 3. Further recommendations to follow EGD (2) Hernia, hiatal: Admission and Anticipated Discharge Date Admission Date: May 14, 2020 Supervising Physician Co-Signing Physician Notes I have personally seen and examined the patient with RADHA Lira. Her note reflects my exam and findings. I agree with her impression and plan. H/H stable after transfusion. Egd today. Cont NPO. Skyler Dixon M.D. Subjective Admitted on 05/14 for abd pain, black emesis and BMs. Hb 10.8 on arrival ->7 + 2 units of RBCs => 8.9 today. Less abd discomfort. No emesis since prior to arrival. (per pt) Most recent BM this morning, small, black. Review of Systems Review of Systems: ROS: Gen: Denies weakness, fevers, weight loss Eyes: No eye redness, or pain, no recent vision changes Resp: No SOB, no cough Cardio: No palpitations/irregular beats, no chest pain GI: As per HPI, otherwise (-) : Denies pain on urination Skin: No jaundice, itching or new rashes Physical Exam Constitutional: well developed and cooperative Eyes: PERRL, conjunctivae normal, anicteric sclerae ENMT: external ear and nose normal, oropharynx normal Neck: trachea midline, no thyromegaly Respiratory: normal respiratory effort, lungs clear to auscultation normal respiratory effort and able to speak in complete sentences; no respiratory distress, no labored breathing, does not use accessory muscles and no cough Cardiovascular: RRR, no murmur, no edema Gastrointestinal (Abdomen): normal bowel sounds, soft, nontender, no hepatosplenomegaly Skin: no rashes, warm and dry normal turgor and + pallor Neurologic: PERRL, EOMI, accommodation nl, no face palsy, no dysarthria awake; not confused Psychiatric: A+Ox3, euthymic affect Orientation: alert, oriented x 3 and cooperative Lymphatic: no cervical or axillary lymphadenopathy Results & Data ([facility]) Vital Signs (Past 12 Hours) Vital Signs Temp Pulse Pulse Resp BP BP Pulse Ox 05/16/20 07:38 36.6 C 93 H 19 117/67 94 05/16/20 04:56 36.6 C 81 18 116/76 97 05/16/20 02:10 36.8 C 78 20 110/71 98 05/16/20 01:22 36.9 C 77 18 118/73 97 05/16/20 00:52 36.9 C 79 18 113/61 97 05/16/20 00:37 36.8 C 76 16 92/58 L 97 05/16/20 00:20 36.8 C 84 18 120/59 L 97 05/15/20 23:52 36.8 C 83 16 112/65 97 05/15/20 23:51 36.8 C 83 16 112/65 97 05/15/20 23:35 36.7 C 85 18 113/76 97 Laboratory Results WBC 6, Hb 8.9, Hct 269, Platelets 207, Na 144, K 37, BUN 11, Cr 0.5. Diagnostic Findings Non contrast CT 05/14: 1. No bowel obstruction. 2. Noninflamed appendix. 3. Large hiatal hernia.
[2020-05-16] MEDS: FLUTICASONE/VILANTEROL 100/25MCG 14 PUFFS/INHALER INH SCH (11:12)
[2020-05-16] MEDS ORDERED: ATROPINE SULFATE 0.1 MG/ML 10ML SYR IV PRN (11:50)
[2020-05-16] MEDS ORDERED: ePHEDrine sulfate 50 MG/ML AMP IV PRN (11:50)
--- NOTE | 2020-05-16 11:50 | Anesthesiology Consultation ---
Date of Service May 16, 2020 Assessment & Plan ASA ASA2 Proposed Anesthesia Anesthesia Type: MAC Risk / Benefits Reviewed With: PT / POA / Parent / Guardian, Accepts Plan and Informed Consent Obtained History Surgery Operation Date: 05/16/20 16:00 Proposed Procedures p Esophagogastroduodenoscopy Dr Zack Dixon MD Operation Date: 05/16/20 16:30 Proposed Procedures p Esophagogastroduodenoscopy Dr Zack Dixon MD Height/Weight Height: 5 ft 3 in Weight: 64.8 kg Allergies Allergy/AdvReac Type Severity Reaction Status Date / Time Bactrim Allergy Intermediate sob, chest Verified 05/30/16 22:22 tightness nitrofurantoin Allergy Intermediate vomiting, Verified 05/14/20 20:28 headache Sulfa (Sulfonamide Allergy Intermediate RASH Unverified 05/14/20 20:28 Antibiotics) sulfamethoxazole Allergy Intermediate sob, chest Verified 05/14/20 20:27 tightness trimethoprim Allergy Intermediate sob, chest Verified 05/14/20 20:27 tightness Iodinated Contrast Media Allergy Unknown unk Verified 05/14/20 20:28 iodine Allergy Unknown CHEST Unverified 05/14/20 20:29 TIGHTNESS Medications Home Medications Medication Instructions Recorded Confirmed Last Taken albuterol sulfate 2 puff INHALATION Q4H PRN 05/14/20 05/14/20 Unknown ascorbic acid (vitamin C) 0 mg PO DAILY 05/14/20 05/14/20 Unknown fluticasone propion-salmeterol 1 inh INHALATION BID 05/14/20 05/14/20 Unknown omeprazole 20 mg PO BID PRN 05/14/20 05/14/20 Unknown Active Medications Generic Name Dose Route Start Last Admin Trade Name Freq PRN Reason Stop Dose Admin Fluticasone/Vilanterol 1 puffs 05/15/20 09:00 05/16/20 11:12 Fluticasone/Vilanterol 100/25mcg 14 Puffs/Inhaler INH 06/14/20 08:59 Not Given DAILY MARTIN Pantoprazole Sodium 40 mg/ 100 mls @ 20 mls/hr 05/14/20 22:00 05/16/20 11:27 Dextrose IV 06/13/20 21:59 0 mg/hr Q5H MARTIN 0 mls/hr Infusion 8 MG/HR Ondansetron HCl 4 mg 05/14/20 20:14 05/15/20 00:20 Ondansetron Inj 2 Mg/Ml 2 Ml Vial IV 06/13/20 20:13 4 mg Q6H PRN Administration Nausea NPO Date Last Intake of Fluids: 05/15/20 Time Last Intake of Fluids: 18:30 Date Last Intake of Solids: 05/13/20 Time Last Intake of Solids: 20:00 Past Medical History Medical History Anemia Asthma Cecal diverticulitis Diverticulitis GERD (gastroesophageal reflux disease) Kidney stone Exercise / Class Metabolic Activity II 4-5 Yardwork/Stairs/Walk up hill Past Anesthesia History No Hx of Anesthesia Complications and No Family Hx of Anesthesia Complications History of PONV No Hx of PONV and No Hx of Motion Sickness Social History Smoking Status: Unknown if ever smoked Hx Alcohol Use: No Hx Substance Use: No Review of Systems denies fever/cough/ colds/ chest pain/ SOB/ SULLY denies SULLY Physical Exam Vital Signs Last Vital Signs Temp 37.4 C 05/16/20 11:32 Pulse 92 H 05/16/20 11:32 Resp 18 05/16/20 11:32 BP 126/94 05/16/20 11:32 Pulse Ox 98 05/16/20 11:32 ENMT Mouth: no TMJ abnormality and no dentition abnormality Thyromental Distance: > or= 3.5 Finger Breadths Mallampati Class: II Neck neck extension not limited Respiratory normal respiratory effort; no respiratory distress Auscultation: lungs clear to auscultation bilaterally Cardiovascular Rate/Rhythm: regular rate and regular rhythm Neurologic moves all extremities Psychiatric Orientation: alert and oriented x 3 Testing Laboratory Results 05/16/20 03:13 05/16/20 03:13 PT 11.5 Seconds (9.0-12.0) 05/14/20 18:05 INR 1.1 (0.9-1.1) 05/14/20 18:05 APTT 24.0 Seconds (21.0-31.0) 05/14/20 18:05 Urine Color Yellow 05/14/20 18:10 Urine Appearance Clear (Clear) 05/14/20 18:10 Urine pH 5.5 (4.5-7.5) 05/14/20 18:10 Ur Specific Platter 1.023 (1.000-1.030) 05/14/20 18:10 Urine Protein Negative (Negative) 05/14/20 18:10 Urine Glucose (UA) Negative (Negative) 05/14/20 18:10 Urine Ketones 2+ (Negative) H 05/14/20 18:10 Urine Nitrite Negative (Negative) 05/14/20 18:10 Ur Leukocyte Esterase Negative (Negative) 05/14/20 18:10 Urine WBC (Auto) 1-5 /hpf (0-5) 05/14/20 18:10 Urine RBC (Auto) 0-4 /hpf (0-4) 05/14/20 18:10 U Hyaline Cast (Auto) 1-5 /lpf (0-5) 05/14/20 18:10 U Epithel Cells (Auto) >30 /lpf (0-5) H 05/14/20 18:10 Urine Bacteria (Auto) Negative (Negative) 05/14/20 18:10 Blood Type A Positive 05/14/20 19:32 Antibody Screen NEGATIVE 05/14/20 19:32
--- NOTE | 2020-05-16 12:36 | GI REPORT ---
Patient Name: Margie Vuong Procedure Date: 05/16/2020 11:57 AM Date of : 1975 Admit Type: Inpatient Age: 45 Gender: Female Attending MD: Skyler Dixon MD Procedure: Upper GI endoscopy Providers: Skyler Dixon MD Referring MD: Kelly White Indications: Acute post hemorrhagic anemia, Melena Medicines: See the Anesthesia note for documentation of the administered medications Complications: No immediate complications. Estimated Blood Loss: Estimated blood loss was minimal. Procedure: Pre-Anesthesia Assessment: - Prior to the procedure, a History and Physical was performed, and patient medications, allergies and sensitivities were reviewed. The patient's tolerance of previous anesthesia was reviewed. - The risks and benefits of the procedure and the sedation options and risks were discussed with the patient. All questions were answered and informed consent was obtained. Procedure necessary during ongoing viral pandemic. - Patient identification and proposed procedure were verified prior to the procedure by the physician and the nurse. The procedure was verified in the pre-procedure area. - Pre-procedure physical examination revealed no contraindications to sedation. - After reviewing the risks and benefits, the patient was deemed in satisfactory condition to undergo the procedure. After obtaining informed consent, the endoscope was passed under direct vision. Throughout the procedure, the patient's blood pressure, pulse, and oxygen saturations were monitored continuously. The Endoscope was introduced through the mouth, and advanced to the third part of duodenum. The upper GI endoscopy was accomplished without difficulty. The patient tolerated the procedure well. Findings: The esophagus was normal. A medium-sized hiatal hernia was present. Multiple erosions with stigmata of recent bleeding were found in the gastric fundus at the level of diaphragm c/w Toño erosions. Biopsies were taken from the stomach randomly with a cold forceps for Helicobacter pylori testing. Verification of patient identification for the specimen was done by the physician and nurse using the patient's name and medical record number. Estimated blood loss was minimal. Many non-bleeding superficial gastric ulcers with no stigmata of bleeding were found in the gastric antrum. The examined duodenum was normal. The cardia and gastric fundus were normal on retroflexion. Impression: - Normal esophagus. - Medium-sized hiatal hernia. - Toño erosions with stigmata of recent bleeding. Stomach biopsied. - Non-bleeding gastric ulcers with no stigmata of bleeding. - No blood in the stomach. - Normal examined duodenum. Recommendation: - Await pathology results. - Return patient to [facility] for ongoing care. Skyler Dixon M.D. Skyler Dixon MD 05/16/2020 12:35:35 PM This report has been signed electronically. Note Initiated On: 05/16/2020 11:57 AM Number of Addenda: 0 I attest to the content of the Intraoperative Record and orders documented therein, exceptions below {[id number]}
--- NOTE | 2020-05-16 12:57 | Anesthesiology Progress Note ---
Date of Service May 16, 2020 Anesthesia Post Procedure Vital Signs Vital Signs: Temp Pulse Pulse Resp BP BP BP 05/16/20 12:42 79 16 138/70 05/16/20 12:27 81 16 115/78 05/16/20 12:12 88 12 125/70 05/16/20 11:32 37.4 C 92 H 18 126/94 05/16/20 07:38 36.6 C 93 H 19 117/67 05/16/20 04:56 36.6 C 81 18 116/76 05/16/20 02:10 36.8 C 78 20 110/71 05/16/20 01:22 36.9 C 77 18 118/73 05/16/20 00:52 36.9 C 79 18 113/61 05/16/20 00:37 36.8 C 76 16 92/58 L 05/16/20 00:20 36.8 C 84 18 120/59 L 05/15/20 23:52 36.8 C 83 16 112/65 05/15/20 23:51 36.8 C 83 16 112/65 05/15/20 23:35 36.7 C 85 18 113/76 05/15/20 22:35 36.7 C 85 16 92/53 L 05/15/20 22:05 36.5 C 89 17 105/55 L 05/15/20 21:50 36.8 C 96 H 108/52 L 05/15/20 21:47 36.8 C 90 107/53 L 05/15/20 21:27 36.8 C 95 H 107/60 05/15/20 19:24 36.7 C 86 19 120/67 05/15/20 15:23 36.8 C 87 17 105/57 L Pulse Ox 05/16/20 12:42 97 05/16/20 12:27 96 05/16/20 12:12 97 05/16/20 11:32 98 05/16/20 07:38 94 05/16/20 04:56 97 05/16/20 02:10 98 05/16/20 01:22 97 05/16/20 00:52 97 05/16/20 00:37 97 05/16/20 00:20 97 05/15/20 23:52 97 05/15/20 23:51 97 05/15/20 23:35 97 05/15/20 22:35 97 05/15/20 22:05 96 05/15/20 21:50 96 05/15/20 21:47 96 05/15/20 21:27 96 05/15/20 19:24 96 05/15/20 15:23 96 Transfer of Care Handoff Completed per policy Notes Mental Status: alert / awake / arousable and participated in evaluation Patient Amnestic to Procedure: Yes Nausea / Vomiting: adequately controlled Pain: adequately controlled Airway Patency, RR, SpO2: stable & adequate BP & HR: stable & adequate Hydration State: stable & adequate Anesthetic Complications: no major complications apparent and Pt Satisfied with anesthetic care
--- NOTE | 2020-05-16 15:37 | Hospitalist Progress Note ---
Date of Service May 16, 2020 Assessment & Plan (1) Acute upper gastrointestinal bleeding: resolved : S/P EGD today showed shallow gastric ulcer without evidence of active bleed appreciate input from GI recommends PO PPI BID for4 weeks , then once daily indefinitely avoid NSAID's in future Presented with abdominal discomfort with nausea and vomiting and black tarry stool possible due to NSAID -was taking for back pain no episode of hematemesis since admission diet advanced Acute blood loss anemia : due to GI bleed Hb drop noted from 10 -> 8-> 7 s/p 2 unit of PRBC Hb ~ 8 hx of chronic Fe deficiency anemia /follows with Dr Garcia gets periodic IV venofer ordered 300mg IV Venofer today , per Dr Garcia : will need 3 more tx of IV venofer every week , Heme onc will arrange out pt tx (2) Acute gastritis: EGD as above avoid NSAID cont PPI as avove (3) Anemia: Iron deficiency anemia IV venofer infusion as above (4) Hernia, hiatal: As above (5) Asthma: Controlled Continue current medications (6) GERD (gastroesophageal reflux disease): Has been on PPI PRN changed to scheduled Protonix BID on discharge -script sent to [facility] DVT prophylaxis SCDs Status Full Disposition: Discharge home tomorrow AM if no episode of GI bleed H&H stable Admission and Anticipated Discharge Date Admission Date: May 14, 2020 Subjective s/p EGD had 2 episodes of black tarry bowel movements today no nausea /vomiting no hematemesis wants to be discharged home today , still feels weak and dizzy after counselling pt is willing to stay overnight plan to dc home in am -if no further episode of GI bleed ,H&H Stable Review of Systems Review of Systems: All systems reviewed & are unremarkable except as noted in HPI & below Physical Exam Constitutional: WD/WN, vitals as above Eyes: PERRL, conjunctivae normal, anicteric sclerae ENMT: external ear and nose normal, oropharynx normal Neck: trachea midline, no thyromegaly Respiratory: normal respiratory effort, lungs clear to auscultation Cardiovascular: RRR, no murmur, no edema Gastrointestinal (Abdomen): normal bowel sounds, soft, nontender, no hepatosplenomegaly Musculoskeletal: no cyanosis or clubbing, extremities motor strength 5/5 Skin: no rashes, warm and dry Neurologic: PERRL, EOMI, accommodation nl, no face palsy, no dysarthria Psychiatric: A+Ox3, euthymic affect Results & Data Results & Data ([facility]) Vital Signs (Past 12 Hours) Vital Signs Temp Pulse Resp BP BP Pulse Ox 05/16/20 13:07 36.8 C 83 16 115/75 98 05/16/20 12:42 79 16 138/70 97 05/16/20 12:27 81 16 115/78 96 05/16/20 12:12 88 12 125/70 97 05/16/20 11:32 37.4 C 92 H 18 126/94 98 05/16/20 07:38 36.6 C 93 H 19 117/67 94 05/16/20 04:56 36.6 C 81 18 116/76 97 (1) Anemia Anemia type: unspecified type Qualified Code(s): D64.9 - Anemia, unspecified
[2020-05-16] MEDS ORDERED: IRON SUCROSE 300 MG in SODIUM CHLORIDE 0.9% 250 ML IV ONE (16:30)
[2020-05-16] MEDS: PANTOprazole 40 MG in SYRINGE 0 ML IV SCH (20:27)
[2020-05-17 06:54] LABS: Hematocrit (blood only) 28.2 % (37-47); Hemoglobin 9.2 g/dL (12.0-16.0); Mean Corpuscular Hemoglobin 29.5 pg (25-34); Mean Corpuscular Hgb Conc 32.6 g/dL (32-36); Mean Corpuscular Volume 90.4 fL (80-100); Mean Platelet Volume 10.2 fL (7.4-10.4); Platelet Count 230 K/uL (130-400); RDW Coefficient of Variation 15.4 % (11.5-14.5); Red Blood Count 3.12 M/uL (4.2-5.4); White Blood Count 6.08 K/uL (4.8-10.8)
[2020-05-17] MEDS: PANTOprazole 40 MG in SYRINGE 0 ML IV SCH (07:50)
[2020-05-17] MEDS: FLUTICASONE/VILANTEROL 100/25MCG 14 PUFFS/INHALER INH SCH (07:50)
--- NOTE | 2020-05-17 09:46 | Gastroenterology Progress Note ---
Date of Service May 17, 2020 Assessment & Plan (1) Hernia, hiatal: Pt tells me she previously saw surgery for options and prefers to avoid. 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 Present on Admission?: Yes (2) Gastric ulcer: Likely NSAID induced. Avoid NSAIDs. Was previously prescribed low dose BID PPI, but had been taking daily. Will address H Pylori gastric bx when results are available. Recommend high dose PPI BID x one month such as pantoprazole 40mg BID, then change to low dose BID and recommend staying on this fci. Repeat EGD in 4-6 weeks recommended and pt was encouraged to call our office for appt if any GI issues. Present on Admission?: Yes Admission and Anticipated Discharge Date Admission Date: May 14, 2020 Supervising Physician Co-Signing Physician Notes I have personally seen and examined the patient with RADHA Lira. Her note reflects my exam and findings. I agree with her impression and plan. Doing well. Will arrange outpatient EGD to confirm healing. Skyler Dixon M.D. Subjective s/p EGD yesterday with gastric ulcers, likely from NSAID use (meloxicam and ibu profen use for back strain). No gross bleeding since black stool early yesterday. no nausea /vomiting no hematemesis No abd pain today. Tolerating a soft diet well. Asks for discharge today. Review of Systems Review of Systems: ROS: Gen: Denies weakness, fevers, weight loss Eyes: No eye redness, or pain, no recent vision changes Resp: No SOB, no cough Cardio: No palpitations/irregular beats, no chest pain GI: No abdominal pain, no nausea/vomiting : Denies pain on urination Skin: No jaundice, itching or new rashes Physical Exam Constitutional: WD/WN, vitals as above Eyes: PERRL, conjunctivae normal, anicteric sclerae ENMT: external ear and nose normal, oropharynx normal Neck: trachea midline, no thyromegaly Respiratory: normal respiratory effort, lungs clear to auscultation Cardiovascular: RRR, no murmur, no edema Gastrointestinal (Abdomen): normal bowel sounds, soft, nontender, no hepatosplenomegaly Skin: no rashes, warm and dry Neurologic: PERRL, EOMI, accommodation nl, no face palsy, no dysarthria Psychiatric: A+Ox3, euthymic affect Results & Data ([facility]) Vital Signs (Past 12 Hours) Vital Signs Temp Pulse Resp BP Pulse Ox 05/17/20 08:08 36.6 C 82 17 125/80 94 05/16/20 23:00 36.8 C 82 18 119/80 95 Laboratory Results Hb today 9.2 (stable post 2 unit transfusion on 05/15 and ). BUN 11. Diagnostic Findings EGD yesterday by Dr. Dixon for melena/anemia: - Normal esophagus. - Medium-sized hiatal hernia. - Toño erosions with stigmata of recent bleeding. Stomach biopsied. - Non-bleeding gastric ulcers with no stigmata of bleeding. - No blood in the stomach. - Normal examined duodenum.
[2020-05-17 11:22] LABS: Ferritin 93.6 ng/ml (8-388)
--- NOTE | 2020-05-21 15:19 | Hospitalist Progress Note ---
Date of Service Delayed entry Date of service 05/17/2020 May 21, 2020 Assessment & Plan (1) Acute upper gastrointestinal bleeding: Acute upper gastrointestinal bleeding, resolved Likely secondary to Toño erosions, gastric ulcers per Dr. White's notes: Presented with abdominal discomfort with nausea and vomiting and black tarry stool possible due to NSAID -was taking for back pain no episode of hematemesis since admission diet advanced S/P EGD: - Normal esophagus. - Medium-sized hiatal hernia. - Toño erosions with stigmata of recent bleeding. Stomach biopsied. - Non-bleeding gastric ulcers with no stigmata of bleeding. - No blood in the stomach. - Normal examined duodenum. GI consulted, recommends PO PPI BID for4 weeks , then once daily indefinitely avoid NSAID's Acute blood loss anemia due to GI bleed Hb drop noted from 10 -> 8-> 7 s/p 2 unit of PRBC Hb ~ 8 Hemoglobin stable after blood transfusion Repeat CBC and follow-up with PCP next week History of chronic Fe deficiency anemia follows with Dr Garcia gets periodic IV venofer per Dr Garcia : will need 3 more tx of IV venofer every week , Heme onc will arrange out pt tx Hernia, hiatal Per GI service: Pt tells me she previously saw surgery for options and prefers to avoid. 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 Asthma: Controlled Continue current medications Disposition: Discharge to home ff up with PCP next week Admission and Anticipated Discharge Date Admission Date: May 14, 2020 Subjective ff up for GI bleed seen resting in bed, sitting up, in good spirits Comfortable States she feels fine overall, significantly better Denies abdominal pain, nausea vomiting, melena hematochezia No shortness of breath, palpitations, dizziness, chest pain No other symptoms States she is ready and like to be discharged Review of Systems Review of Systems: All systems reviewed & are unremarkable except as noted in Subjective Physical Exam Physical Exam: General- oriented x 3, not in distress, speaks in sentences with no effort or accessory muscle use Eyes- anicteric Neck- no JVD Lungs- clear breath sounds bilaterally, no rales/wheezes Heart- normal rate, regular rhythm; no murmurs Abdomen- normal bowel sounds, nondistended, soft, nontender Extremities- no pretibial edema, no calf tenderness Neuro- alert, oriented x 3; no gross focal neurologic deficits Skin- warm & dry Results & Data Results & Data ([facility]) Laboratory Results Noted and reviewed
--- NOTE | 2020-05-21 15:32 | Discharge Summary ---
Date of Service May 21, 2020 Admission HPI Per Admitting Provider She is a 45 years old female with significant past medical history of iron deficiency anemia, GERD with esophagitis, hiatal hernia and history of homozygous for [id number] polymorphism of MTHFR apparently has been complaining of abdominal pain since around 3 AM this morning. She has had gluten-free pizza last evening and also took Aleve 550 mg last evening. She woke up with epigastric discomfort and vomited once and following that she was not feeling well throughout the whole day today. She has had another vomiting in the afternoon and that did show brown vomitus and also had a bowel movement with black tarry stool. Apparently she took Pepto-Bismol for stomach upset as well which can make the stool black. She did not have any fever and/or chills with it. She did not have any problem with urine and denies any other symptoms. She has been complaining of increasing bowel sound but none office her family members have been affected with this problem. Her hemoglobin was 10.8 which showed a drop from his outpatient hemoglobin from 13. Started with intravenous Protonix and admitted admitted to telemetry unit for continuation of care. Admission Exam Per Admitting Provider Physical Exam: Lying in bed comfortably Constitutional: well developed, well nourished and + ill appearing; no acute distress Eyes: PERRL, conjunctivae normal, anicteric sclerae ENMT: external ear and nose normal, oropharynx normal Neck: trachea midline, no thyromegaly Respiratory: no respiratory distress Auscultation: lungs clear to auscult ation bilaterally Cardiovascular: Rate/Rhythm: regular rate and regular rhythm Heart Sounds: no murmur Gastrointestinal (Abdomen): Inspection/Auscultation: abdomen not distended and + abnormal bowel sounds (Bowel sounds exaggerated) Percussion/Palpation: + abdomen tender (Mildly tender epigastrium) and abdomen soft Musculoskeletal: No acute arthritis in any joint Psychiatric: A+Ox3, euthymic affect Lymphatic: no cervical or axillary lymphadenopathy Principal Diagnosis UPPER GASTROINTESTINAL BLEED Discharge Exam General- oriented x 3, not in distress, speaks in sentences with no effort or accessory muscle use Eyes- anicteric Neck- no JVD Lungs- clear breath sounds bilaterally, no rales/wheezes Heart- normal rate, regular rhythm; no murmurs Abdomen- normal bowel sounds, nondistended, soft, nontender Extremities- no pretibial edema, no calf tenderness Neuro- alert, oriented x 3; no gross focal neurologic deficits Skin- warm & dry Discharge Data Allergies Allergy/AdvReac Type Severity Reaction Status Date / Time Bactrim Allergy Intermediate sob, chest Verified 05/30/16 22:22 tightness nitrofurantoin Allergy Intermediate vomiting, Verified 05/14/20 20:28 headache Sulfa (Sulfonamide Allergy Intermediate RASH Unverified 05/14/20 20:28 Antibiotics) sulfamethoxazole Allergy Intermediate sob, chest Verified 05/14/20 20:27 tightness trimethoprim Allergy Intermediate sob, chest Verified 05/14/20 20:27 tightness Iodinated Contrast Media Allergy Unknown unk Verified 05/14/20 20:28 iodine Allergy Unknown CHEST Unverified 05/14/20 20:29 TIGHTNESS Consultations 05/14/20 19:34 ED Decision to Admit Stat 05/14/20 20:14 Consult Gastroenterology Routine Procedures Performed Operation Date: 05/16/20 16:00 <No data on this case meets the specified criteria> Operation Date: 05/16/20 16:30 Actual Procedures p EGD Biopsy Cytology - Skyler Dixon MD Ordered Studies 05/14/20 17:47 CT abd pelvis wo con Stat Clear lung bases. No pneumatosis or pneumoperitoneum. Imaged inferior cardiac chambers are unremarkable. The spleen, pancreas and right adrenal gland are unremarkable. 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 Mildly contracted gallbladder. Unenhanced liver is unremarkable. Unremarkable kidneys. Decompressed urinary bladder. Follicular changes of the ovaries. Unremarkable uterus. Aorta and IVC are unremarkable. Large hiatal hernia. Colonic diverticulosis without acute diverticulitis. Wall thickening with partial distention involves the ascending and transverse colon. 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 No small bowel obstruction. Normal appendix. Bones appear intact. No acute fracture. IMPRESSION: 1. No bowel obstruction. 2. Noninflamed appendix. 3. Large hiatal hernia. Hospital Course (1) Acute upper gastrointestinal bleeding: Acute upper gastrointestinal bleeding, resolved Likely secondary to Toño erosions, Gastric ulcers per Dr. White's notes: Presented with abdominal discomfort with nausea and vomiting and black tarry stool possible due to NSAID -was taking for back pain no episode of hematemesis since admission diet advanced S/P EGD: - Normal esophagus. - Medium-sized hiatal hernia. - Toño erosions with stigmata of recent bleeding. Stomach biopsied. - Non-bleeding gastric ulcers with no stigmata of bleeding. - No blood in the stomach. - Normal examined duodenum. GI consulted, recommends PO PPI BID for4 weeks , then once daily indefinitely avoid NSAID's Acute blood loss anemia due to GI bleed Hb drop noted from 10 -> 8-> 7 s/p 2 unit of PRBC Hb ~ 8 Hemoglobin stable after blood transfusion Repeat CBC and follow-up with PCP next week History of Chronic Fe deficiency anemia follows with Dr Garcia gets periodic IV venofer per Dr Garcia : will need 3 more tx of IV venofer every week , Heme onc will arrange out pt tx Hernia, hiatal Per GI service: Pt tells me she previously saw surgery for options and prefers to avoid. 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 Asthma: Controlled Continue current medications Disposition: Discharge to home ff up with PCP next week Total Time Total Time Spent Total Time Spent (In Minutes): 45 mins Discharge Plan Discharge Items Patient Disposition: Home - Self-Care Reason For Visit: ACUTE UGI BLEED,GASTRITIS Discharge Diagnosis: GASTRIC ULCER , GI BLEEDING , Condition on Discharge: Good Activity: Resume your previous activity Non-emergency contact: Primary Care Provider Call non-emergency contact if: you have any medication questions Follow-up/Referrals: Kathie Hong CRNP [Nurse Practitioner] - (FOLLOW UP WITH GI IN 4-6 WEEKS ) Jim Bailey MD [Primary Care Provider] - (Date & Time 05/22/2020 3:00 PM Provider Jim Bailey MD Department Family [facility] ) Diet: Regular Ambulatory Orders: Complete Blood Count no Diff (Routine) Timeframe: 1 Week Location: Determined by Patient Ordered By: Kelly White Addtl Attending Provider Instructions: DO NOT TAKE ASPIRIN , ALEVE, MOTRIN , IBUPROPHEN , NAPROXEN -AVOID ALL NSAID'S - YOU HAVE INCREASED RISK FOR RECURRENCE OF GASTRIC ULCER AND BLEEDING PLEASE NOTIFY YOUR FAMILY PHYSICIAN WITH ANY EVENT OF DARK /TARRY COLOURED STOOL CONTINUE TO TAKE PROTONIX 40 MG 1 TABLET TWICE DAILY FOR 4 WEEKS THEN 1 TABLET DAILY INDEFINITELY (ALWAYS TAKE AT LEAST30 MINUTES BEFORE BREAKFAST AND DINNER) HOSPITAL FOLLOW UP WITH YOUR FAMILY PHYSICIAN IN A WEEK Pending Studies at Discharge: Yes Studies:: BLOOD WORK : COMPLETE BLOOD COUNT WITH NEXT PHYSICIAN VISIT Stand-Alone Forms: My [facility], Work/School Release (Inpt), Smoking Cessation Medications and DC Order Prescriptions: New pantoprazole [Protonix] 40 mg tablet,delayed release (DR/EC) 40 mg PO BID 10 Days Qty: 60 RF: 3 Continued ascorbic acid (vitamin C) 100 mg Tablet 0 mg PO DAILY RF: 0 fluticasone propion-salmeterol 250-50 mcg/dose blister with device 1 inh INHALATION BID RF: 0 albuterol sulfate 90 mcg/actuation HFA aerosol inhaler 2 puff INHALATION Q4H PRN (Reason: Shortness Of Breath Or Wheezing) RF: 0 Discontinued omeprazole 20 mg Capsule,Delayed Release(Dr/Ec) 20 mg PO BID PRN (Reason: Gi Upset) RF: 0 Discharge Orders: Discharge Order (Routine); Ordered 05/17/20 Ordered By: Jimbo Arora Admission Data Admit Date/Time: 05/14/20 20:15 Attending Provider: Jimbo Arora Admit Provider: David Karimi Primary Care Provider: Jim Bailey Other Providers: David Karimi ; Kathie Hong ; Kristin Akhtar ; Joshua Man ; Lizette Ferrer ; Rober Lacy ; Jaime Valencia ; Taylor Mchugh ; Vijay Cason ; Skyler Dixon ; Adry Nicole ; Kami Gallardo ; Aarti Ashton ; Shona Curiel ; Randi Song ; Kelly White H. Other Interventions: Discharge Summary Assessment (RN) Last Done: 05/17/20 10:10
== END 2020-05-17 11:07 | disposition home or self-care (01) | DRG 378 ==
LOC: ED 17:31 → 2E 20:15 → SUATTDRO 20:15 → 2E 21:01 → 2N 05-16 14:56